=== PATIENT | female | born 1980 | race African-American/Black ===

== ENCOUNTER 2016-10-25 10:29 | Emergency (ER) | payer OTHER ==
[~2016-10-25] VITALS: Ht 157.5 cm; Wt 111.6 kg
[2016-10-25 11:27] LABS: BILIRUBIN,URINE NEGATIVE (NEG); GLUCOSE,URINE NEGATIVE (NEG); NITRITE,URINE NEGATIVE (NEG); PH,URINE 5.5; PROTEIN,URINE 100 mg/dL (NEG-TRACE); RBC,URINE >40 /HPF (0-2); UROBILINOGEN,URINE 0.2 mg/dL (0.2 mg/dL)
[2016-10-25 11:28] LABS: BACTERIA,URINE MODERATE /HPF (0-FEW); SQUAMOUS EPITHELIAL CELL,UR FEW /LPF
--- NOTE | 2016-10-25 11:28 | PHYS DOC ---
Past Medical History Past Medical History: Anemia, Diabetes-Type II, Other Additional Past Medical Histor: MOOD DISORDER Past Surgical History: Tubal ligation Alcohol Use: Rarely Drug Use: None Adult General Chief Complaint Chief Complaint: FLANK PAIN [facility] HPI Patient is a 36 year old female presents to the emergency department stating that she's been having left flank pain for the last month. Patient states she's been having left lower quadrant pain. She was seen by her primary care physician as she thought it was like her ovary falling out. She states he did a urinalysis which was negative. She states that they did no further examination. Patient states she is now having left flank pain and discomfort with radiation down into her left pelvic area. She states she just today when she went to wipe herself that she had a brown discharge noted on the toilet paper today she states when she went to urinate today her urine was dark in color. She denies any vaginal discharge. She states she's been taken ibuprofen for the pain and discomfort with minimal relief. She states she's been nauseated on and off. She denies any fever, chills or any diarrhea. She does state that her stools have been somewhat soft. Review of Systems Review of Systems Constitutional: Denies fever or chills [] Eyes: Denies change in visual acuity, redness, or eye pain [] HENT: Denies nasal congestion or sore throat [] Respiratory: Denies cough or shortness of breath [] Cardiovascular: No additional information not addressed in HPI [] GI: Patient complaint of left flank pain with radiation down into the left lower abdomen. Denies any vomiting denies any diarrhea worse bloody stools. Does state she's been nauseated on and off. : Complains of dark urine. Musculoskeletal: Denies back pain or joint pain [] Integument: Denies rash or skin lesions [] Neurologic: Denies headache, focal weakness or sensory changes [] Endocrine: Denies polyuria or polydipsia [] Current Medications Current Medications Current Medications Medications (Trade) Dose Ordered Sig/Cristi Start Time Stop Time Status Last Admin Dose Admin Ketorolac Tromethamine (Toradol) 10 mg 1X ONCE 10/25/16 11:30 10/25/16 11:31 DC 10/25/16 11:28 10 MG Allergies Allergies Allergies Coded Allergies Type Severity Reaction Last Updated Verified No Known Drug Allergies 10/25/16 No Physical Exam Physical Exam Constitutional: Well developed, well nourished, no acute distress, non-toxic appearance. [] HENT: Normocephalic, atraumatic, bilateral external ears normal, oropharynx moist, no oral exudates, nose normal. [] Eyes: PERRLA, EOMI, conjunctiva normal, no discharge. [] Neck: Normal range of motion, no tenderness, supple, no stridor. [] Cardiovascular:Heart rate regular rhythm, no murmur [] Lungs & Thorax: Bilateral breath sounds clear to auscultation [] Abdomen: Bowel sounds hypoactive, soft, left lower quadrant tenderness, no masses, no pulsatile masses. [] Skin: Warm, dry, no erythema, no rash. [] Back: No tenderness, no CVA tenderness. [] Extremities: No tenderness, no cyanosis, no clubbing, ROM intact, no edema. [] Neurologic: Alert and oriented X 3, normal motor function, normal sensory function, no focal deficits noted. [] Psychologic: Affect normal, judgement normal, mood normal. [] Current Patient Data Vital Signs Vital Signs Date Time Temp Pulse Resp B/P (MAP) Pulse Ox O2 Delivery O2 Flow Rate FiO2 10/25/16 13:27 78 20 122/75 (91) 99 Room Air 10/25/16 10:50 98.8 98.8 Lab Values Laboratory Tests Test 10/25/16 09:47 10/25/16 10:35 POC Urine HCG, Qualitative Hcg negative (Negative) Urine Collection Type Unknown Urine Color Brown Urine Clarity Cloudy Urine pH 5.5 Urine Specific [place] 1.020 Urine Protein 100 mg/dL (NEG-TRACE) Urine Glucose (UA) Negative mg/dL (NEG) Urine Ketones (Stick) Negative mg/dL (NEG) Urine Blood Large (NEG) Urine Nitrite Negative (NEG) Urine Bilirubin Negative (NEG) Urine Urobilinogen Dipstick 0.2 mg/dL (0.2 mg/dL) Urine Leukocyte Esterase Moderate (NEG) Urine RBC >40 /HPF (0-2) Urine WBC 5-10 /HPF (0-4) Urine Squamous Epithelial Cells Few /LPF Urine Bacteria Moderate /HPF (0-FEW) EKG EKG [] Radiology/Procedures Radiology/Procedures [facility] [address] [place] [address] IMAGING REPORT Signed PATIENT: SIMON CISSE ACCOUNT: [id number] : 1980 LOCATION: ER AGE: 36 SEX: F EXAM STATUS: REG ER ORD. PHYSICIAN: BRIGIDA GARRIDO APRN REASON: left ovary enlarged. PROCEDURE: PELVIS W/TV Pelvic ultrasound, 10/25/2016: History: Pelvic pain, enlarged left ovary. Transabdominal and transvaginal scans were obtained. Uterus measures 11.8 x 7.7 x 5.7 cm. The central uterine echo complex is mildly thickened measuring approximate 17 mm in AP dimension. The right ovary is unremarkable. The left ovary is mildly enlarged measuring 4.6 x 3.7 x 2.8 cm. There appears to be a small septated cyst measuring approximately 2.5 cm and the left ovary. Blood flow is present in both ovaries. No free fluid is evident in the pelvis. IMPRESSION: 1. Mild nonspecific thickening of the central uterine echo complex. This can be due to endometrial hyperplasia or an endometrial polyp. 2. Small septated cyst in the left ovary. DICTATED and SIGNED BY: FELISHA WOLFF MD DATE: 10/25/16 1344 CC: BRIGIDA GARRIDO APRN; UNKNOWN PCP NAME ~ [facility] [address] [place] [address] IMAGING REPORT Signed PATIENT: SIMON CISSE ACCOUNT: [id number] : 1980 LOCATION: ER AGE: 36 SEX: F EXAM STATUS: REG ER ORD. PHYSICIAN: BRIGIDA GARRIDO APRN REASON: left flank pain with radiation to left lower pelvic area PROCEDURE: CT ABDOMEN PELVIS WO CONTRAST CT of the abdomen and pelvis without contrast, 10/25/2016: History: Left flank pain, hematuria Noncontrast scans were obtained utilizing the renal stone protocol. No intrarenal calculi are identified. The renal collecting systems and ureters are not dilated. No ureteral calculus is seen. There are multiple bilateral lower pelvic calcifications compatible with phleboliths. The partially filled urinary bladder is unremarkable. The unopacified liver is unremarkable. No dense gallstones are seen. The pancreas is unremarkable. The spleen is of normal size. No abdominal or pelvic adenopathy is detected. The uterus is unremarkable. The left ovary is mildly enlarged with a rounded bulge in its anterior contour. It measures approximately 4 cm. The bowel loops are not dilated. The appendix is visualized and shows no abnormality. No free air or significant free fluid is identified in the abdomen or pelvis. IMPRESSION: 1. No urinary tract calculi are identified. 2. Mild nonspecific left ovary enlargement. PQRS Compliance Statement: One or more of the following individualized dose reduction techniques were utilized for this examination: 1. Automated exposure control 2. Adjustment of the mA and/or kV according to patient size 3. Use of iterative reconstruction technique DICTATED and SIGNED BY: FELISHA WOLFF MD DATE: 10/25/16 7153 CC: BRIGIDA GARRIDO APRN; UNKNOWN PCP NAME ~ [] Course & Med Decision Making Course & Med Decision Making Pertinent Labs and Imaging studies reviewed. (See chart for details) Urine positive for urinary tract infection. CT scan of the abdomen and pelvis identified a 6 over he got was enlarged on the left. Ultrasound identified a cyst on the left ovary. Patient will be discharged home with antibiotics, Cipro. She'll be recommended to drink plenty fluids such as water and cranberry juice. Recommended avoid cranberry juice cocktail, carbonated beverages, citrus fruits, and alcohol sees her considered irritants to the bladder. Patient agrees with discharge instructions, treatment regimens and follow-up recommendations. Signs and symptoms to return back to emergency department as been provided.[] Dragon Disclaimer Dragon Disclaimer This electronic medical record was generated, in whole or in part, using a voice recognition dictation system. Departure Departure Impression: Primary Impression: UTI (urinary tract infection) Disposition: 01 HOME, SELF-CARE Condition: STABLE Patient Instructions: Urinary Tract Infection, [id number] Additional Instructions: CT scan identified an enlarged ovary on the left. Ultrasound identified a cyst on your left ovary. Urine was positive for urinary tract infection. Drink plenty of fluids such as water and cranberry juice. Avoid cranberry juice cocktail, carbonate beverages, citrus fruits, alcohol, and caffeine as these are considered irritants to the bladder. Follow-up to primary care physician in the next week. Return back to emergency prior signs symptoms of become worse. Scripts Ciprofloxacin Hcl (CIPRO) 500 Mg Tablet 1 TAB PO BID, #14 TAB Prov: BRIGIDA GARRIDO APRN 10/25/16 Problem Qualifiers Primary Impression: UTI (urinary tract infection) Urinary tract infection type: site unspecified Hematuria presence: with hematuria Qualified Codes: N39.0 - Urinary tract infection, site not specified ; R31.9 - Hematuria, unspecified BRIGIDA GARRIDO APRN Oct 25, 2016 11:28
[2016-10-25] MEDS ORDERED: KETOROLAC TROMETHAMINE 10 MG TABLET PO ONE (11:30)
--- NOTE | 2016-10-25 12:17 | RAD ---
CT of the abdomen and pelvis without contrast, 10/25/2016: History: Left flank pain, hematuria Noncontrast scans were obtained utilizing the renal stone protocol. No intrarenal calculi are identified. The renal collecting systems and ureters are not dilated. No ureteral calculus is seen. There are multiple bilateral lower pelvic calcifications compatible with phleboliths. The partially filled urinary bladder is unremarkable. The unopacified liver is unremarkable. No dense gallstones are seen. The pancreas is unremarkable. The spleen is of normal size. No abdominal or pelvic adenopathy is detected. The uterus is unremarkable. The left ovary is mildly enlarged with a rounded bulge in its anterior contour. It measures approximately 4 cm. The bowel loops are not dilated. The appendix is visualized and shows no abnormality. No free air or significant free fluid is identified in the abdomen or pelvis. IMPRESSION: 1. No urinary tract calculi are identified. 2. Mild nonspecific left ovary enlargement. PQRS Compliance Statement: One or more of the following individualized dose reduction techniques were utilized for this examination: 1. Automated exposure control 2. Adjustment of the mA and/or kV according to patient size 3. Use of iterative reconstruction technique
[2016-10-25 13:27] VITALS: BP 122/75
--- NOTE | 2016-10-25 13:54 | RAD ---
Pelvic ultrasound, 10/25/2016: History: Pelvic pain, enlarged left ovary. Transabdominal and transvaginal scans were obtained. Uterus measures 11.8 x 7.7 x 5.7 cm. The central uterine echo complex is mildly thickened measuring approximate 17 mm in AP dimension. The right ovary is unremarkable. The left ovary is mildly enlarged measuring 4.6 x 3.7 x 2.8 cm. There appears to be a small septated cyst measuring approximately 2.5 cm and the left ovary. Blood flow is present in both ovaries. No free fluid is evident in the pelvis. IMPRESSION: 1. Mild nonspecific thickening of the central uterine echo complex. This can be due to endometrial hyperplasia or an endometrial polyp. 2. Small septated cyst in the left ovary.
[2016-10-25] MEDS ORDERED: CIPR500T94 PO (14:09)
== END 2016-10-25 14:18 | disposition home or self-care (01) ==
LOC: ER 10:29
DX: N39.0 Urinary tract infection, site not specified (principal); E11.9 Type 2 diabetes mellitus without complications; Z98.51 Tubal ligation status
CPT/HCPCS: 74176; 76830; 76856; 81001; 81025; 87086; 99285-25

== ENCOUNTER → 2017-04-09 | Outpatient (CLI) | payer BC, OTHER ==
[2017-04-09 14:07] LABS: ADD MAN DIFF? NO
[2017-04-09 14:11] LABS: BILIRUBIN,URINE NEGATIVE (NEG); CLARITY,URINE CLEAR; COLOR,URINE YELLOW; GLUCOSE,URINE NEGATIVE (NEG); NITRITE,URINE NEGATIVE (NEG); PH,URINE 6.5; PROTEIN,URINE NEGATIVE (NEG-TRACE)
[2017-04-09 14:12] LABS: BASO % 0 % (0-3); EOS % 0 % (0-3); HEMATOCRIT 33.6 % (36.0-47.0); HEMOGLOBIN 10.3 g/dL (12.0-15.5); LYMPH # 1.8 x10^3/uL (1.0-4.8); LYMPH % 20 % (24-48); MEAN CORPUSCULAR HEMOGLOBIN 22 pg (25-35); MEAN CORPUSCULAR HGB CONC 31 g/dL (31-37); MEAN CORPUSCULAR VOLUME 71 fL (79-100); MONO # 0.5 x10^3/uL (0.0-1.1); MONO % 6 % (0-9); NEUT # 6.7 x10^3uL (1.8-7.7); NEUT % 74 % (31-73); PLATELET COUNT 311 x10^3/uL (140-400); RED CELL DISTRIBUTION WIDTH 17.2 % (11.5-14.5); WHITE BLOOD COUNT 9.1 x10^3/uL (4.0-11.0)
[2017-04-09 14:22] LABS: HYALINE CASTS, URINE OCCASIONAL /HPF; SQUAMOUS EPITHELIAL CELL,UR FEW /LPF
[2017-04-09 14:23] LABS: RBC,URINE 20-40 /HPF (0-2)
[2017-04-09 14:24] LABS: BACTERIA,URINE 0 /HPF (0-FEW); WBC,URINE RARE /HPF (0-4)
[2017-04-09 14:31] LABS: ALBUMIN 2.9 g/dL (3.4-5.0); ALBUMIN/GLOBULIN RATIO 0.6 (1.0-1.7); ALK PHOS 82 U/L (46-116); ALT (SGPT) 15 U/L (14-59); ANION GAP 11 (6-14); AST (SGOT) 10 U/L (15-37); BLOOD UREA NITROGEN 14 mg/dL (7-20); BUN/CREATININE RATIO 16 (6-20); CALCIUM 9.5 mg/dL (8.5-10.1); CARBON DIOXIDE 27 mmol/L (21-32); CHLORIDE 100 mmol/L (98-107); CREATININE 0.9 mg/dL (0.6-1.0); GFR 85.7; GLUCOSE 116 mg/dL (70-99); POTASSIUM 4.2 mmol/L (3.5-5.1); SODIUM 138 mmol/L (136-145); TOTAL BILIRUBIN 0.2 mg/dL (0.2-1.0); TOTAL PROTEIN 7.9 g/dL (6.4-8.2)
[2017-04-09 14:52] LABS: ANISOCYTOSIS MOD; HYPOCHROMIA SLIGHT; MICROCYTOSIS MOD; PLT ESTIMATE ADEQUATE (ADEQUATE)
== END | disposition home or self-care (01) ==
LOC: SURGPAT 13:07
DX: Z01.818 Encounter for other preprocedural examination (principal); R94.31 Abnormal electrocardiogram [ECG] [EKG]; R79.89 Other specified abnormal findings of blood chemistry
CPT/HCPCS: 36415; 71046; 80053; 81001; 85025; 87086; 93005

== ENCOUNTER 2017-04-22 08:36 | Observation (INO) | payer BC ==
[~2017-04-22 08:36] MED LIST: LIDOCAINE 1% PF 2 ML VIAL. ID; MORPHINE SULFATE 4 MG/ML DISP.SYRIN. IV; ONDANSETRON PF 4 MG/2 ML VIAL. IV; fentaNYL PF VIAL 100 MCG/2 ML VIAL IV
[2017-04-22] MEDS ORDERED: BUPIVAC MPF-EPI 0.5%-1:200000 30 ML VIAL. INJ (09:00)
[2017-04-22] MEDS ORDERED: SEVOFLURANE 61 TO 120 MINUTES. IH (09:09)
[2017-04-22] MEDS ORDERED: ONDANSETRON PF 4 MG/2 ML VIAL. (09:09)
[2017-04-22] MEDS ORDERED: KETOROLAC 30 MG/ML INJ FOR OR. INJ (09:09)
[2017-04-22] MEDS ORDERED: PROPOFOL 20 ML IV (09:09)
[2017-04-22] MEDS ORDERED: NEOSTIGMINE 10 MG/10 ML VIAL. (09:10)
[2017-04-22] MEDS ORDERED: fentaNYL PF VIAL 100 MCG/2 ML VIAL (09:10)
[2017-04-22] MEDS ORDERED: GLYCOPYRROLATE 1 MG/5 ML VIAL. (09:10)
[2017-04-22] MEDS ORDERED: ROCURONIUM 50 MG/5 ML VIAL. (09:10)
[2017-04-22 09:53] LABS: POC GLUCOSE 126 mg/dL (70-99)
[2017-04-22 11:02] LABS: NEG OBC UR NEG; POS OBC UR POS; U PREG PATIENT NEGATIVE (NEG)
[2017-04-22] MEDS: BUPIVAC MPF-EPI 0.5%-1:200000 30 ML VIAL. INJ (11:51)
[2017-04-22] MEDS ORDERED: ceFAZolin 2GM PREMIX 2 GM/50 ML BAG IV (12:00)
[2017-04-22] MEDS ORDERED: SEVOFLURANE > 120 MINUTES. IH (13:41)
[2017-04-22] MEDS ORDERED: oxyCODONE/APAP 5/325 1 TAB TABLET PO (13:45)
[2017-04-22] MEDS ORDERED: MORPHINE SULFATE 4 MG/ML DISP.SYRIN. IV (13:45)
[2017-04-22] MEDS ORDERED: traZODone 50 MG TABLET. PO (13:45)
[2017-04-22] MEDS ORDERED: 0.9 % SODIUM CHLORIDE 10 ML DISP.SYRIN. IV (13:45)
[2017-04-22] MEDS ORDERED: ZOLPIDEM 5 MG TABLET. PO (13:45)
[2017-04-22] MEDS ORDERED: LACTULOSE 20 GM/30 ML SOLUTION. PO (13:45)
[2017-04-22] MEDS ORDERED: MAG HYDROX/ALUMINUM HYD/SIMETH 30 ML ORAL.SUSP PO (13:45)
[2017-04-22] MEDS ORDERED: diphenhydrAMINE 50 MG/ML VIAL IV (13:45)
[2017-04-22] MEDS ORDERED: diphenhydrAMINE HCL 25 MG CAPSULE PO (13:45)
[2017-04-22] MEDS ORDERED: NALOXONE 0.4 MG/ML VIAL. IV (13:45)
[2017-04-22] MEDS ORDERED: ONDANSETRON PF 4 MG/2 ML VIAL. IV (13:45)
[2017-04-22] MEDS ORDERED: CALCIUM CARBONATE 500 MG TAB.CHEW PO (13:45)
[2017-04-22] MEDS ORDERED: MAGNESIUM HYDROXIDE 2,400 MG/30 ML ORAL.SUSP. PO (13:45)
[2017-04-22] MEDS: IV RINGERS,LACTATED 1000ML 1,000 ML IV (13:59)
[2017-04-22] MEDS: PROCHLORPERAZINE 10 MG/2 ML VIAL. IV (14:11)
[2017-04-22] MEDS: fentaNYL PF VIAL 100 MCG/2 ML VIAL IV ×2 (14:11→15:03)
[2017-04-22 16:29] LABS: HEMATOCRIT 28.3 % (36.0-47.0); HEMOGLOBIN 8.6 g/dL (12.0-15.5); MEAN CORPUSCULAR HEMOGLOBIN 22 pg (25-35); MEAN CORPUSCULAR HGB CONC 31 g/dL (31-37); MEAN CORPUSCULAR VOLUME 72 fL (79-100); PLATELET COUNT 266 x10^3/uL (140-400); RED BLOOD COUNT 3.94 x10^6/uL (3.50-5.40); RED CELL DISTRIBUTION WIDTH 16.7 % (11.5-14.5); WHITE BLOOD COUNT 17.7 x10^3/uL (4.0-11.0)
[2017-04-22 17:30] LABS: POC GLUCOSE 220 mg/dL (70-99)
[2017-04-22] MEDS: metFORMIN 500 MG TABLET PO ×2 (17:35→22:08)
[2017-04-22] MEDS ORDERED: DEXTROSE 50% 25 GM / 50ML DISP.SYRIN. IV (18:15)
[2017-04-22] MEDS: HYDROcodone/APAP 5/325MG 1 TAB TABLET PO (20:08)
[2017-04-22 21:41] LABS: POC GLUCOSE 231 mg/dL (70-99)
[2017-04-23] MEDS: HYDROcodone/APAP 5/325MG 1 TAB TABLET PO (06:08)
[2017-04-23 06:53] LABS: ANION GAP 8 (6-14); BLOOD UREA NITROGEN 10 mg/dL (7-20); CALCIUM 8.5 mg/dL (8.5-10.1); CARBON DIOXIDE 27 mmol/L (21-32); CHLORIDE 104 mmol/L (98-107); CREATININE 1.1 mg/dL (0.6-1.0); GLUCOSE 180 mg/dL (70-99); POTASSIUM 4.4 mmol/L (3.5-5.1); SODIUM 139 mmol/L (136-145)
[2017-04-23] MEDS: metFORMIN 500 MG TABLET PO (10:53)
[2017-04-23] MEDS: VENLAFAXINE XR 37.5 MG CAP.ER.24H. PO (10:53)
[2017-04-23] MEDS: SIMETHICONE 80 MG TAB.CHEW PO (10:53)
[2017-04-23 10:54] LABS: POC GLUCOSE 146 mg/dL (70-99)
== END 2017-04-23 14:14 | disposition home or self-care (01) ==
LOC: SURG 08:36 → 3 NORTH 13:45
PROVIDERS: Obstetrics & Gynecology
DX: D25.9 Leiomyoma of uterus, unspecified (principal); N80.1 Endometriosis of ovary; N83.202 Unspecified ovarian cyst, left side; N83.8 Other noninflammatory disorders of ovary, fallopian tube and broad ligament; D64.9 Anemia, unspecified; E11.9 Type 2 diabetes mellitus without complications
CPT/HCPCS: 36415; 80048; 81025; 82962; 85014; 85027; 86850; 86900; 86901; 88307; C1769; G0378; G0379; J0690; J0780; J1885; J2405; J2704; J2710; J3010; J3490; J7030; J7120

== ENCOUNTER → 2017-07-14 | Outpatient (CLI) | payer BC ==
[2017-07-14 14:34] LABS: BLOOD UREA NITROGEN 11 mg/dL (7-20)
[2017-07-14 14:34] LABS: CREATININE 0.9 mg/dL (0.6-1.0); GFR 85.7
[2017-07-14] MEDS: IOHEXOL 300 MG/ML 100ML VIAL. IV (15:17)
[2017-07-14] MEDS: IOHEXOL 240 MG/ML 50ML VIAL. PO (15:18)
== END | disposition home or self-care (01) ==
LOC: CT 14:01
DX: D64.9 Anemia, unspecified (principal); Z90.710 Acquired absence of both cervix and uterus
CPT/HCPCS: 36415; 74177; 82565; 84520; Q9966; Q9967

== ENCOUNTER 2020-12-05 12:32 | Emergency (ER) | payer SELFPAY ==
[~2020-12-05] VITALS: Ht 157.5 cm; Wt 102.3 kg
[~2020-12-05 12:32] MED LIST changes: +CALC-98 PO; +CIPR500T94 PO; +FERR325T14 PO; +LEVO1TAB8 PO; -LIDOCAINE 1% PF 2 ML VIAL. ID; +METF10007 PO; -MORPHINE SULFATE 4 MG/ML DISP.SYRIN. IV; -ONDANSETRON PF 4 MG/2 ML VIAL. IV; +TRAZ-118 PO; +VENL75TA PO; -fentaNYL PF VIAL 100 MCG/2 ML VIAL IV
--- NOTE | 2020-12-05 12:57 | PHYS DOC ---
Past Medical History Past Medical History: Anemia, Diabetes-Type II, Other Additional Past Medical Histor: MOOD DISORDER Past Surgical History: Tubal ligation Smoking Status: Never Smoker Alcohol Use: Rarely Drug Use: None General Adult EDM: Chief Complaint: HYPERGLYCEMIA HPI: HPI: Patient is a 40 year old female who presents with 1 hour prior to arrival began having sharp chest pain mostly when she lays back or if she takes a deep breath. She states it feels slightly heavy and she has some shortness of breath. Patient is very anxious. She states that she is supposed to be taking her Metformin but forgets to take it often. She states she does not remember when the last time she took it. Rates her discomfort at a 6 out of 10. Did not take any aspirin. Denies dizziness, headache, nausea, vomiting, diarrhea, cough, fever, urinary symptoms, back pain, abdominal pain, focal weakness, numbness or tingling. Review of Systems: Review of Systems: Constitutional: Denies fever or chills. [] Eyes: Denies change in visual acuity. [] HENT: Denies nasal congestion or sore throat. [] Respiratory: Denies cough or +shortness of breath. [] Cardiovascular: + chest pain or denies edema. [] GI: Denies abdominal pain, nausea, vomiting, bloody stools or diarrhea. [] : Denies dysuria. [] Musculoskeletal: Denies back pain or joint pain. [] Integument: Denies rash. [] Neurologic: Denies headache, focal weakness or sensory changes. [] Endocrine: Denies polyuria or polydipsia. [] Lymphatic: Denies swollen glands. [] Psychiatric: Denies depression or anxiety. [] Heart Score: C/O Chest Pain: Yes HEART Score for Chest Pain: HEART Score for Chest Pain Response (Comments) Value History Slighlty/Non-Suspicious 0 ECG Nonspecific Repolarizatio 1 Age < 45 0 Risk Factors 1 or 2 Risk Factors 1 Troponin < Normal Limit 0 Total 2 Risk Factors: Risk Factors: DM, Current or recent (<one month) smoker, HTN, HLP, family history of CAD, obesity. Risk Scores: Score 0 - 3: 2.5% MACE over next 6 weeks - Discharge Home Score 4 - 6: 20.3% MACE over next 6 weeks - Admit for Clinical Observation Score 7 - 10: 72.7% MACE over next 6 weeks - Early Invasive Strategies Current Medications: Current Medications Medications (Trade) Dose Ordered Sig/Cristi Start Time Stop Time Status Last Admin Dose Admin Aspirin (Divya Aspirin) 325 mg 1X ONCE 12/05/20 13:00 12/05/20 13:01 UNV Allergies: Allergies: Allergies Coded Allergies Type Severity Reaction Last Updated Verified No Known Drug Allergies 04/22/17 No Physical Exam: PE: Constitutional: Well developed, well nourished, no acute distress, non-toxic appearance. [] HENT: Normocephalic, atraumatic, bilateral external ears normal, oropharynx moist, no oral exudates, nose normal. [] Eyes: PERRLA, EOMI, conjunctiva normal, no discharge. [] Neck: Normal range of motion, no tenderness, supple, no stridor. [] Cardiovascular:Heart rate regular rhythm, no murmur [] Lungs & Thorax: Bilateral breath sounds clear to auscultation [] Abdomen: Bowel sounds normal, soft, no tenderness, no masses, no pulsatile masses. [] Skin: Warm, dry, no erythema, no rash. [] Back: No tenderness, no CVA tenderness. [] Extremities: No tenderness, no cyanosis, no clubbing, ROM intact, no edema. [] Neurologic: Alert and oriented X 3, normal motor function, normal sensory function, no focal deficits noted. [] Psychologic: Affect normal, judgement normal, mood normal. [] Current Patient Data: Labs: Laboratory Tests Test 12/05/20 12:52 Glucose (Fingerstick) 135 mg/dL (70-99) H EKG: EK and read by Dr. Atkinson is sinus rhythm but no STEMI. Radiology/Procedures: Radiology/Procedures: [] Impression: [facility] [address] [place], [place] [id number] IMAGING REPORT Signed PATIENT: SIMON SALEH OACCOUNT: [id number] : 1980 LOCATION: ER AGE: 40 SEX: F EXAM STATUS: PRE ER ORD. PHYSICIAN: BRIGIDA SERRANO APRN REASON: CHEST PAIN, HIGH BLOOD SUGAR PROCEDURE: PORTABLE CHEST 1V XR CHEST 1V CLINICAL INDICATIONS: Reason: CHEST PAIN, HIGH BLOOD SUGAR / Spl. Instructions: / History: COMPARISON: April 09, 2017. Findings: No acute lung infiltrate or pleural effusion or pulmonary edema or matt g mass or pneumothorax is seen. The heart size, pulmonary vasculature, mediastinum and both gera are unremarkable. IMPRESSION: No acute radiographic abnormality is seen. Electronically signed by: Roberto Franz MD (12/05/2020 1:13 PM) [id number] DICTATED and SIGNED BY: ROBERTO FRANZ MD DATE: 12/05/20 [id number] 0 Course & Med Decision Making: Course & Med Decision Making Pertinent Labs and Imaging studies reviewed. (See chart for details) See HPI. Alert and oriented x4. Ambulatory steady gait. Speaks in full clear sentences. Chest pain is not reproducible with pressure palpation. She is given 325 aspirin. Skin pink warm and dry. No extremity edema. Cap refill less than 2 seconds. Patient has a history of breast reduction, anemia, diabetes, hysterectomy for uterine fibroids, depression and a tubal ligation. She denies any family history for cardiac disease, cardiac arrest or [place]. Blood work is generally unremarkable. I did replace her magnesium. Patient states she is still having some pain. She is very tearful and states she is very stressed because of family members being sick and then she started a new job and her daughter is special needs. She states that she is very stressed and has anxiety. 2 troponins are negative. Patient states she does have a physician she can follow-up with. Patient is stable to go home. [] [place] Disclaimer: [place] Disclaimer: This electronic medical record was generated, in whole or in part, using a voice recognition dictation system. Departure Departure Impression: Primary Impression: Chest pain, non-cardiac Disposition: HOME / SELF CARE / HOMELESS Condition: STABLE Referrals: MAITE MONROE DO (PCP) Patient Instructions: Anxiety and Panic Attacks, Chest Pain (Nonspecific), Stress, Stress Management Additional Instructions: Follow-up with your primary care provider this coming up week. Drink plenty of fluids. If your symptoms worsen you can always return to the emergency room. BRIGIDA SERRANO W[employer] TURNING MACHINE OPERATOR Dec 05, 2020 12:57
[2020-12-05] MEDS ORDERED: ASPIRIN 325 MG TABLET PO ONE (13:00)
--- NOTE | 2020-12-05 13:16 | RAD ---
XR CHEST 1V CLINICAL INDICATIONS: Reason: CHEST PAIN, HIGH BLOOD SUGAR / Spl. Instructions: / History: COMPARISON: April 09, 2017. Findings: No acute lung infiltrate or pleural effusion or pulmonary edema or lung mass or pneumothora x is seen. The heart size, pulmonary vasculature, mediastinum and both gera are unremarkable. IMPRESSION: No acute radiographic abnormality is seen. Electronically signed by: Amando Franz MD (12/05/2020 1:13 PM) [id number]
[2020-12-05 13:17] LABS: BILIRUBIN,URINE NEGATIVE (NEG); CLARITY,URINE CLEAR; COLOR,URINE YELLOW; NITRITE,URINE NEGATIVE (NEG); PROTEIN,URINE NEGATIVE (NEG-TRACE); UROBILINOGEN,URINE 0.2 mg/dL (0.2 mg/dL)
[2020-12-05 13:19] LABS: BASO # 0.1 x10^3/uL (0.0-0.2); BASO % 1 % (0-3); EOS # 0.1 x10^3/uL (0.0-0.7); EOS % 1 % (0-3); HEMATOCRIT 36.7 % (36.0-47.0); HEMOGLOBIN 11.4 g/dL (12.0-15.5); LYMPH % 23 % (24-48); MEAN CORPUSCULAR HEMOGLOBIN 23 pg (25-35); MEAN CORPUSCULAR HGB CONC 31 g/dL (31-37); MEAN CORPUSCULAR VOLUME 75 fL (79-100); MONO # 0.5 x10^3/uL (0.0-1.1); MONO % 6 % (0-9); NEUT % 70 % (31-73); PLATELET COUNT 252 x10^3/uL (140-400); RED BLOOD COUNT 4.91 x10^6/uL (3.50-5.40); RED CELL DISTRIBUTION WIDTH 15.4 % (11.5-14.5); WHITE BLOOD COUNT 8.6 x10^3/uL (4.0-11.0)
[2020-12-05 13:24] LABS: BARBITURATES NEG (NEG); BENZODIAZEPINES NEG (NEG); CANNABINOIDS POS (NEG); COCAINE NEG (NEG); METHADONE NEG (NEG); OPIATES NEG (NEG); PHENCYCLIDINE NEG (NEG)
[2020-12-05 13:25] LABS: AMPHETAMINE/METHAMPHETAMINE NEG (NEG)
[2020-12-05 13:29] LABS: CREATININE 0.9 mg/dL (0.6-1.0); GFR 83.9; POTASSIUM 3.9 mmol/L (3.5-5.1)
[2020-12-05 13:33] LABS: BACTERIA,URINE FEW /HPF (0-FEW); RBC,URINE 0 /HPF (0-2); WBC,URINE OCC /HPF (0-4)
[2020-12-05 13:34] LABS: ALBUMIN 3.4 g/dL (3.4-5.0); ALBUMIN/GLOBULIN RATIO 0.7 (1.0-1.7); MAGNESIUM 1.7 mg/dL (1.8-2.4); TOTAL BILIRUBIN 0.2 mg/dL (0.2-1.0); TOTAL PROTEIN 8.1 g/dL (6.4-8.2)
[2020-12-05] MEDS ORDERED: MAGNESIUM SULFATE 2GM 50 ML IV ONE (14:15)
[2020-12-05 16:15] VITALS: BP 142/83
== END 2020-12-05 16:41 | disposition home or self-care (01) ==
LOC: ER 12:32
DX: R07.89 Other chest pain (principal); R06.02 Shortness of breath; J45.909 Unspecified asthma, uncomplicated; E11.9 Type 2 diabetes mellitus without complications; F39 Unspecified mood [affective] disorder
CPT/HCPCS: 36415; 71045; 80053; 80307; 81001; 82962; 83690; 83735; 83880; 84484; 85025; 85379; 93005; 96365; 96366; 99285; J3475